=== PATIENT | female | born 1945 | race Caucasian/White ===

== ENCOUNTER 2021-03-13 10:03 | Outpatient (CLI) | payer MEDICARE, OTHER | END 2021-03-13 10:04 | disposition home or self-care (01) | LOC: PET 10:03 | PROVIDERS: ATTEND Internal Medicine Hematology & Oncology | DX: C09.8 Malignant neoplasm of overlapping sites of tonsil (principal) | CPT/HCPCS: 78815; A9552 ==

== ENCOUNTER 2021-05-04 11:25 | Inpatient (IN) | payer MEDICARE, OTHER ==
[2021-05-04] MEDS ORDERED: Lidocaine Viscous Sol 2% 15 ml UD Cup ONE (13:45)
[2021-05-04 13:51] LABS: #Lymphocytes 0.8 thou/uL (1.20-3.40); #Monocytes 0.4 thou/uL (0.11-0.59); #Neutrophils 3.7 thou/uL (1.40-6.50); %Basophils 0.7 % (0.0-1.0); %Eosinophils 0.9 % (0.0-10.0); %Lymphocytes 15.7 % (21.0-51.0); %Monocytes 7.9 % (0.0-10.0); %Neutrophils 74.9 % (42.0-75.0); Hemoglobin 13.5 g/dL (12.0-16.0); Mean Corpuscular HGB CONC 35.8 g/dL (32.0-36.0); Mean Corpuscular Hemoglobin 32.1 pg (27.0-31.0); Mean Corpuscular Volume 89.5 fL (78.0-98.0); Mean Platelet Volume 5.9 fL (7.4-10.4); Platelet Count 288 thou/uL (130-400); RBC Distribution Width 11.8 % (11.5-14.5); Red Blood Cell (RBC) Count 4.23 mill/uL (4.20-5.40); White Blood Cell (WBC) Count 4.9 thou/uL (4.8-10.8)
[2021-05-04] MEDS ORDERED: Ketorolac Tromethamine 30 MG/ML VIAL ONE (13:59)
[2021-05-04 14:13] LABS: ALT (SGPT) 10 U/L (8-55); AST (SGOT) 20 U/L (5-34); Albumin 3.8 g/dL (3.4-4.8); Alkaline Phosphatase 81 U/L (40-110); Anion Gap 21 mmol/L (10-20); BUN (Urea Nitrogen) 10 mg/dL (9.8-20.1); Calc. Creatinine Clearance 0 mL/min (70-130); Calcium 9.8 mg/dL (7.8-10.44); Carbon Dioxide 21 mmol/L (23-31); Chloride 98 mmol/L (98-107); Globulin 3.5 g/dL (2.4-3.5); Glucose 66 mg/dL (83-110); Magnesium 1.7 mg/dL (1.6-2.6); Potassium 3.9 mmol/L (3.5-5.1); Protein, Total 7.3 g/dL (5.8-8.1); Sodium 136 mmol/L (136-145)
[2021-05-04] MEDS ORDERED: Acetaminophen 325 MG/10.15 ML UDCUP ONE (14:44)
[2021-05-04] MEDS ORDERED: Dexamethasone 4 mg/ml Vial ONE (14:44)
[2021-05-04] MEDS ORDERED: Ketorolac Tromethamine 30 MG/ML VIAL IVP PRN (16:55)
[2021-05-04] MEDS ORDERED: Acetaminophen 650 MG/20.3 ML UDCUP PO SCH (17:00)
[2021-05-04] MEDS ORDERED: Bicillin LA 1.2 MILLION UNITS/2 ML SYRINGE ONE (17:42)
[2021-05-04] MEDS: Lactated Ringer's 1,000 ML IV SCH (19:57)
[2021-05-04 21:46] VITALS: BMI 27.2
[2021-05-05] MEDS: Lactated Ringer's 1,000 ML IV SCH ×3 (01:45→20:27)
[2021-05-05] MEDS: Acetaminophen 325 MG/10.15 ML UDCUP PO SCH ×4 (01:46→20:28)
[2021-05-05] MEDS ORDERED: Acetaminophen 650 MG/20.3 ML UDCUP PO SCH (02:00)
[2021-05-05 05:52] LABS: Anion Gap 14 mmol/L (10-20); BUN (Urea Nitrogen) 8 mg/dL (9.8-20.1); Calc. Creatinine Clearance 77 mL/min (70-130); Calcium 8.9 mg/dL (7.8-10.44); Carbon Dioxide 20 mmol/L (23-31); Chloride 108 mmol/L (98-107); Glucose 103 mg/dL (83-110); Potassium 4.1 mmol/L (3.5-5.1); Sodium 138 mmol/L (136-145)
[2021-05-05] MEDS ORDERED: Ibuprofen 100 MG/5 ML UDCUP PO PRN (08:49)
[2021-05-05] MEDS: Enoxaparin Sodium 40 MG/0.4 ML SYRINGE SC SCH (09:02)
[2021-05-05] MEDS ORDERED: Ketorolac Tromethamine 30 MG/ML VIAL IVP SCH (23:15)
[2021-05-06] MEDS: Acetaminophen 325 MG/10.15 ML UDCUP PO SCH ×4 (02:41→20:16)
[2021-05-06] MEDS: Lactated Ringer's 1,000 ML IV SCH ×4 (02:41→21:08)
[2021-05-06] MEDS: Enoxaparin Sodium 40 MG/0.4 ML SYRINGE SC SCH (08:43)
[2021-05-06 21:02] LABS: SARS-CoV-2 NAA Rapid Test Not Detected (NotDetected)
[2021-05-07] MEDS: Acetaminophen 325 MG/10.15 ML UDCUP PO SCH ×5 (01:07→19:35)
[2021-05-07] MEDS: Lactated Ringer's 1,000 ML IV SCH ×2 (05:22→18:39)
[2021-05-07] MEDS ORDERED: ceFAZolin 2 GM/DEX 5% 100 ML BAG ONE (07:50)
[2021-05-07] MEDS ORDERED: Ketamine 50 MG/ML (10ML VIAL) ONE (07:55)
[2021-05-07] MEDS ORDERED: Fentanyl 100 MCG/2 ML VIAL ONE (08:07)
[2021-05-07] MEDS ORDERED: Lidocaine 1% PF 5 ML VIAL ONE (08:21)
[2021-05-07] MEDS ORDERED: PROPOFOL 200 MG/20 ML VIAL ONE (08:21)
[2021-05-07] MEDS: Pantoprazole 40 MG GRANULES PACKET PER TUBE SCH (10:05)
[2021-05-07] MEDS ORDERED: Ibuprofen 100 MG/5 ML UDCUP PER TUBE PRN (21:30)
[2021-05-08] MEDS: Acetaminophen 325 MG/10.15 ML UDCUP PO SCH ×4 (02:05→20:31)
[2021-05-08] MEDS: Lactated Ringer's 1,000 ML IV SCH ×3 (02:06→20:32)
[2021-05-08] MEDS: Pantoprazole 40 MG GRANULES PACKET PER TUBE SCH (10:02)
[2021-05-08] MEDS: Enoxaparin Sodium 40 MG/0.4 ML SYRINGE SC SCH (10:05)
[2021-05-08] MEDS ORDERED: Polyethylene Glycol 3350 17 GM Packet PER TUBE SCH (14:15)
[2021-05-09] MEDS: Acetaminophen 325 MG/10.15 ML UDCUP PO SCH ×4 (02:30→21:16)
[2021-05-09] MEDS: Lactated Ringer's 1,000 ML IV SCH (06:04)
[2021-05-09] MEDS: Polyethylene Glycol 3350 17 GM Packet PER TUBE SCH (10:39)
[2021-05-09] MEDS: Pantoprazole 40 MG GRANULES PACKET PER TUBE SCH (10:39)
[2021-05-09] MEDS: Enoxaparin Sodium 40 MG/0.4 ML SYRINGE SC SCH (10:40)
[2021-05-09] MEDS: Metoclopramide 10 MG/10 ML UDCUP PER TUBE SCH ×3 (11:51→21:17)
[2021-05-09] MEDS ORDERED: Senokot S 8.6-50 MG TAB PER TUBE SCH (15:00)
[2021-05-09] MEDS: Senokot S 8.6-50 MG TAB PER TUBE SCH (21:17)
[2021-05-10] MEDS: Acetaminophen 325 MG/10.15 ML UDCUP PO SCH ×3 (01:44→14:00)
[2021-05-10] MEDS: Metoclopramide 10 MG/10 ML UDCUP PER TUBE SCH ×2 (07:35→11:25)
[2021-05-10 08:45] VITALS: BP 111/56; TEMP 98
[2021-05-10] MEDS: Enoxaparin Sodium 40 MG/0.4 ML SYRINGE SC SCH (10:31)
[2021-05-10] MEDS: Senokot S 8.6-50 MG TAB PER TUBE SCH (10:31)
[2021-05-10] MEDS: Pantoprazole 40 MG GRANULES PACKET PER TUBE SCH (10:31)
[2021-05-10] MEDS: Polyethylene Glycol 3350 17 GM Packet PER TUBE SCH (10:31)
== END 2021-05-10 15:45 | disposition home or self-care (01) | DRG 147 ==
LOC: ERS 11:25 → MSONC 15:34 → OBSVTOIN 05-07 07:41
PROVIDERS: ADMIT Student in an Organized Health Care Education/Training Program; ATTEND Student in an Organized Health Care Education/Training Program
DX: C09.9 Malignant neoplasm of tonsil, unspecified (principal); E44.0 Moderate protein-calorie malnutrition; Z20.822 Contact with and (suspected) exposure to COVID-19; R13.12 Dysphagia, oropharyngeal phase; J02.9 Acute pharyngitis, unspecified; E86.0 Dehydration; T73.0XXA Starvation, initial encounter; X58.XXXA Exposure to other specified factors, initial encounter; E16.2 Hypoglycemia, unspecified; Z92.3 Personal history of irradiation; Z85.818 Personal history of malignant neoplasm of other sites of lip, oral cavity, and pharynx; Z85.72 Personal history of non-Hodgkin lymphomas; Z90.710 Acquired absence of both cervix and uterus; Z90.49 Acquired absence of other specified parts of digestive tract; Z91.030 Bee allergy status; Z88.5 Allergy status to narcotic agent; Z91.048 Other nonmedicinal substance allergy status; Z80.7 Family history of other malignant neoplasms of lymphoid, hematopoietic and related tissues; Z68.27 Body mass index [BMI] 27.0-27.9, adult
CPT/HCPCS: 36415; 77386; 80048; 80053; 83735; 85025; 87070; 96372; 96374; 96375; J0561; J1100; J1885; J2704; J3010; J7120; U0002

== ENCOUNTER 2021-09-17 11:06 | Outpatient (CLI) | payer MEDICARE, OTHER ==
[~2021-09-17 11:06] MED LIST: Iopamidol 370 76% 100 ML VIAL ONE
== END 2021-09-17 11:07 | disposition home or self-care (01) ==
LOC: CT 11:06
PROVIDERS: ATTEND Radiology Radiation Oncology
DX: C09.9 Malignant neoplasm of tonsil, unspecified (principal); J35.8 Other chronic diseases of tonsils and adenoids; R93.89 Abnormal findings on diagnostic imaging of other specified body structures; Z90.89 Acquired absence of other organs; Z92.3 Personal history of irradiation
CPT/HCPCS: 70491; 82565; Q9967

== ENCOUNTER 2025-03-01 06:46 | Day surgery (SDC) | payer MEDICARE, OTHER ==
[2025-02-28 12:28] VITALS: BMI 26.0
[2025-03-01] MEDS ORDERED: PROPOFOL 40 ML ONE ×2 (08:41→09:25)
[2025-03-01] MEDS ORDERED: Lidocaine 1% PF 5 ML VIAL ONE (08:52)
[2025-03-01] MEDS ORDERED: Ondansetron PF 4 MG/2 ML Vial ONE (09:41)
[2025-03-01] MEDS ORDERED: EPINEPHrine 1 MG/10 ML Abboject SYRINGE ONE (09:48)
== END 2025-03-01 12:20 | disposition home or self-care (01) ==
LOC: SDC 06:46
PROVIDERS: ATTEND Internal Medicine Gastroenterology
PROC: 0DBH8ZZ Excision of Cecum, Via Natural or Artificial Opening Endoscopic (ICD-10-PCS; principal; 2025-03-01)
PROC: 0DBL8ZZ Excision of Transverse Colon, Via Natural or Artificial Opening Endoscopic (ICD-10-PCS; 2025-03-01)
PROC: 0D758ZZ Dilation of Esophagus, Via Natural or Artificial Opening Endoscopic (ICD-10-PCS; 2025-03-01)
DX: Z12.11 Encounter for screening for malignant neoplasm of colon (principal); D12.0 Benign neoplasm of cecum; D12.3 Benign neoplasm of transverse colon; K44.9 Diaphragmatic hernia without obstruction or gangrene; K57.30 Diverticulosis of large intestine without perforation or abscess without bleeding; K22.2 Esophageal obstruction; Z86.0101 Personal history of adenomatous and serrated colon polyps; Z90.89 Acquired absence of other organs; Z90.710 Acquired absence of both cervix and uterus; Z91.030 Bee allergy status; Z88.5 Allergy status to narcotic agent; Z91.048 Other nonmedicinal substance allergy status
CPT/HCPCS: 43248; 45385; C1889; J1100; J2405; J2704; 88305; J0165